=== PATIENT | male | born 1990 | race Caucasian/White ===

== ENCOUNTER 2018-05-11 08:44 | Inpatient (IN) ==
[2018-05-11] MEDS ORDERED: SODIUM CHLORIDE 0.9% 1000ML 1,000 ML IV SCH (09:00)
[2018-05-11] MEDS ORDERED: ALBUT/IPRATROP 3MG/0.5MG NEB 3 ML VIAL NEB STA (09:00)
[2018-05-11 09:24] LABS: Basophils # (auto) 0.03 K/uL (0-0.2); Basophils % (auto) 0.4 %; Eosinophils # (auto) 0.28 K/uL (0-0.5); Eosinophils % (auto) 4.1 %; Hematocrit (blood only) 44.9 % (42-52); Hemoglobin 15.6 g/dL (14.0-18.0); Immature Granulocytes # (auto) 0.01 K/uL (0.00-0.02); Immature Granulocytes % (auto) 0.1 %; Lymphocytes # (auto) 0.85 K/uL (1.2-3.4); Lymphocytes % (auto) 12.4 %; Mean Corpuscular Hgb Conc 34.7 g/dL (32-36); Mean Corpuscular Volume 86.8 fL (80-100); Mean Platelet Volume 9.9 fL (7.4-10.4); Monocytes # (auto) 0.65 K/uL (0.11-0.59); Monocytes % (auto) 9.5 %; Neutrophils # (auto) 5.02 K/uL (1.4-6.5); Neutrophils % (auto) 73.5 %; Platelet Count 242 K/uL (130-400); RDW Coefficient of Variation 12.6 % (11.5-14.5); RDW Standard Deviation 40.4 fL (36.4-46.3); Red Blood Count 5.17 M/uL (4.7-6.1); White Blood Count 6.84 K/uL (4.8-10.8)
--- NOTE | 2018-05-11 09:26 | XRay Report ---
SINGLE VIEW CHEST CLINICAL HISTORY: Atypical chest pain. FINDINGS: An AP, portable, upright chest radiograph is obtained. No prior studies are available for c omparison at the time of dictation. The cardiomediastinal silhouette is unremarkable. There is mild bibasilar atelectasis. No airspace consolidation or large pleural effusion is identified. No pneumoth orax is seen. The bony thorax is grossly intact. IMPRESSION: No acute cardiopulmonary abnormality. Electronically signed by: Bishnu Craig M.D. 05/11/2018 9:24 AM
[2018-05-11 09:32] LABS: iSTAT Hemoglobin 15.3 g/dl (14.0-18.0); iSTAT Ionized Calcium 1.14 mmol/l (1.12-1.32)
[2018-05-11] MEDS ORDERED: ALBUTEROL 0.083% NEBU SOLN 3 ML VIAL NEB STA (09:34)
[2018-05-11 09:42] LABS: Alanine Aminotransferase 25 U/L (12-78); Albumin Level 3.8 gm/dl (3.4-5.0); Aspartate Aminotransferase 17 U/L (15-37); BUN Creatinine Ratio 16.2 (10-20); Blood Urea Nitrogen 12 mg/dl (7-18); Calcium 8.8 mg/dl (8.5-10.1); Carbon Dioxide 26 mmol/L (21-32); Chloride 104 mmol/L (98-107); Creatinine Clr Calc Pharmacy 135.9 ml/min; Est GFR (African American) 143.7; Glucose 101 mg/dl (70-99); Potassium 3.9 mmol/L (3.5-5.1); Sodium 136 mmol/L (136-145)
[2018-05-11 09:47] LABS: Alkaline Phosphatase 86 U/L (45-117); Bilirubin,Total 0.5 mg/dl (0.2-1); Creatine Kinase 71 U/L (39-308); Creatine Kinase MB < 1.0 ng/ml (0.5-3.6); Globulin 3.7 gm/dl (2.5-4.0); Total Protein 7.5 gm/dl (6.4-8.2); Troponin I < 0.015 ng/ml (0-0.045)
[2018-05-11] MEDS ORDERED: OPTIRAY 320 125ml IV PRN (09:52)
--- NOTE | 2018-05-11 10:09 | CT Scan Report ---
CT angio chest PE protocol CLINICAL HISTORY: 28 years-old Male presenting with chest pain, clinical concern for pulmonary embolu s. TECHNIQUE: Multidetector CT angiography of the chest was performed after administration of intravenou s contrast. 3-D volumetric and/or maximum intensity projection (MIP) images were subsequently reconst ructed for review. IV contrast: 121 mL of Optiray 320. One or more dose lowering techniques were used consistent with the principles of ALARA (as low as reasonably achievable), including automatic expos ure control, mA or kV adjustment to individual patient size, and/or use of iterative reconstruction. COMPARISON: Chest x-ray performed earlier today. CT DOSE (mGy.cm): The estimated cumulative dose is 474.04 mGycm. FINDINGS: Heel Builder Machine topogram: Unremarkable. Pulmonary vasculature: The study is suboptimal for the assessment of the pulmonary vascular tree secondary to timing of the contrast bolus and respiratory motion artifact. Extensive bilateral acute pulmonary emboli involving the distal portion of the right interlobar artery and segmental branches to the right lower lobe. Sub segmental branches in the right middle lobe are affected. The right upper lobe is relatively spared a s is the left upper lobe and lingula. Extensive left lower lobar pulmonary emboli significantly invol ving segmental and subsegmental left lower lobe ulnar arteries. Main pulmonary artery is not enlarged . Mild flattening of the interventricular septum may be present though the diameter of the right vent ricle is not enlarged relative to the left. No intracardiac filling defect. No reflux of contrast int o the hepatic veins. Remaining chest: Soft tissues: Normal thyroid and thoracic inlet. Extensive mediastinal lymphadenopathy. An index node in the prevascular region measures 9 mm in short axis. Enlarged subcarinal lymph nodes also evident. Extensive bilateral hilar lymphadenopathy. The right paratracheal region has few enlarged lymph node s. Normal aorta. Top normal heart size. Trace left pleural effusion. No pericardial effusion. Upper a bdomen normal. Lungs and airways: No pneumothorax. Central airways patent. Extensive tree-in-bud as well as randomly distributed punctate nodules in the posterior apical segments of the right upper lobe and to a lesse r extent in the left upper lobe. There is minimal involvement of the right middle lobe. More peripher al solid bandlike and consolidative changes in the posterior basal left lower lobe. Dependent changes in the right lower lobe likely atelectasis. Mild interlobular septal prominence of the right upper l obe. Musculoskeletal: Normal osseous structures. IMPRESSION: 1. Extensive bilateral acute pulmonary emboli with a lower lobe predominance. Subtle flattening of t he interventricular septum. No other demonstrable signs of right heart strain. Correlate clinically. 2. Trace left pleural effusion and possible developing pulmonary infarct in the posterior basal left lower lobe. 3. Extensive tree-in-bud and randomly distributed punctate nodules primarily in the right upper lobe with bilateral hilar and mediastinal lymphadenopathy. This is concerning for an underlying disease p rocess such as sarcoidosis among other etiologies including infectious bronchiolitis and IV talcosis. Follow-up should BE obtained. These findings were discussed with Dr. Joiner by Dr. Meyer on 05/11/2018 9:59 AM. Electronically signed by: Chris Meyer M.D. 05/11/2018 10:08 AM
[2018-05-11] MEDS ORDERED: HYDROmorphone INJ 1 MG/ML SYRINGE ONE (10:43)
[2018-05-11] MEDS ORDERED: HYDROmorphone INJ 1 MG/ML SYRINGE IV STA (10:43)
[2018-05-11] MEDS ORDERED: ONDANSETRON INJ 2 MG/ML 2 ML VIAL IV STA ×2 (10:43→11:10)
[2018-05-11] MEDS ORDERED: LEVOFLOXACIN/D5W 750 MG/150 ML BAG IV STA (10:47)
[2018-05-11] MEDS ORDERED: PIPERACILL/TAZOBAC CONSULT ACTIVE PRN (10:47)
[2018-05-11] MEDS ORDERED: VANCOMYCIN CONSULT ACTIVE PRN (10:47)
[2018-05-11] MEDS ORDERED: PIPERACILLIN/TAZOBACTAM 4.5 GM/120 ML BAG IV ONE (10:47)
[2018-05-11] MEDS ORDERED: VANCOMYCIN HCL 1,500 MG in SODIUM CHLORIDE 0.9% 500 ML IV ONE (10:47)
[2018-05-11 10:48] LABS: Partial Thromboplastin Ratio 1.1; Partial Thromboplastin Time 30.2 Seconds (21.0-31.0); Prothrombin Time 10.4 Seconds (9.0-12.0)
[2018-05-11] MEDS ORDERED: Heparin IV Standard *NO* Bolus IV ONE ×2 (10:48→12:15)
--- NOTE | 2018-05-11 10:50 | Ultrasound Report ---
BILATERAL LOWER EXTREMITY VENOUS DOPPLER HISTORY: Multiple pulmonary emboli. COMPARISON STUDY: None. FINDINGS: There is normal compressibility, flow, and augmentation within the bilateral lower extremit y deep venous systems. IMPRESSION: No DVT within the right or left lower extremity. Electronically signed by: James Monroe M.D. 05/11/2018 10:49 AM
[2018-05-11] MEDS ORDERED: HEPARIN 25000 UNIT/500 ML D5W IV ONE (10:58)
[2018-05-11] MEDS ORDERED: ALTEPLASE, RECOMBINANT 100 MG in EMPTY BAG 0 ML IV ONE (11:00)
[2018-05-11] MEDS ORDERED: PRIMARY PLUMSET 1 EA IV ONE (11:00)
[2018-05-11] MEDS ORDERED: HYDROmorphone INJ 1 MG/ML SYRINGE IV PRN ×2 (11:10→14:00)
--- NOTE | 2018-05-11 11:31 | History & Physical Report ---
Date of Service May 11, 2018 Assessment & Plan (1) Pulmonary embolism: bilateral distribution, more predominant in the lower lobes experiencing some chest pain and dyspnea this would be consider provoked due to frequent flights to [facility] no DVT seen on bilateral dopplers hypercoagulable work up sent by ED doctor, needs outpatient follow up will treat with heparin drip initially transition to oral anticoagulant in next two days for chest pain, use Oxycodone PRN and Dilaudid for breakthrough echo ordered by ED physician to look for any signs of right heart strain however, all blood pressures have been in 110-130 range admit to tele (2) Chest pain: due to pulmonary infarction, most of the pain is on the left side use Oxycodone and Dilaudid for breakthrough (3) Lung nodules: punctate nodules seen on CT also there was tree in bud opacity in right upper lobe report mentions mediastinal and hilar adenopathy d/w Dr. Osei, he will see the patient and look at CT and give recommendations patient given antibiotics in the ED, no plans to continue on admission WBC normal, no fever radiology did recommend follow up CT 40 minutes spent on this admission History of Present Illness Chief Complaint: my chest hurts really bad Primary Care Provider: Fernando Feliciano MD 28 yo male with no significant medical history, presents to the ED today c/o severe chest pain. He noticed the pain yesterday afternoon, occurred while at rest. The pain was worse with exertion or taking a deep breath. The pain continued to get more intense and he felt short of breath. He had a non- productive cough, no hemoptysis, no fever. He came to the ED for evaluation. He has never had chest pain like this. He had a severe URI a month ago, since then he has had a nagging intermittent cough. He does smoke occasionally. In the ED his initial vital signs showed a pulse of 103, RR 20, 95% on room air and systolic BP in the 120's. His CBC and BMP were normal. D dimer was elevated. Normal CXR and EKG. CTA chest showed bilateral PE with predominance in the lower lobes, small left pleural effusion and infarction. Some tree in bud opacities in right upper lobe and hilar adenopathy noted. Venous doppler negative for DVT bilaterally and he denied leg pain. He has no personal history of VTE. He says that his mother's father had blood clots. He admits to traveling by plan quite often for work. He flies to [place], [place] often, flights are a few hours. 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 He says that he wears PPD every time but they always tell him that it is not 100% effective. There were discussions by ED staff to use tPA because he had increased chest pain. However, his blood pressure was preserved, 130's systolic, HR in the 90s. Elected to use Heparin drip and admit to tele. Discussed the findings on CT chest with Dr. Osei, he will see the patient in consult. Allergies Allergy/AdvReac Type Severity Reaction Status Date / Time No Known Allergies Allergy Unverified 05/11/18 09:32 Home Medications Home Medications Medication Instructions Recorded Confirmed Type sertraline 100 mg PO QAM 05/11/18 05/11/18 History Past Med/Surg History Medical History Depression Finger laceration No chronic diseases present No significant past surgical history Family History Other DVT (deep venous thrombosis) Social History Feels Safe at Home: Yes Smoking Status: Current every day smoker Review of Systems All systems reviewed & are unremarkable except as noted in HPI & below Constitutional: no fever, no chills, no sweats, no body aches, no fatigue, no weakness and no weight loss Respiratory: + cough, + dyspnea on exertion, + pain on inspiration and + pain with cough; no chest congestion, no change in sputum, no dyspnea, no hemoptysis , no snoring, no sputum production and no wheezing Cardiovascular: + chest pain, + chest pain at rest, + chest pain with activity, + dyspnea and + dyspnea on exertion; no radiating jaw, neck or arm pain, no dyspnea at rest, no orthopnea, no paroxysmal nocturnal dyspnea, no palpitations , no lightheadedness, no syncope, no edema, no calf pain and no claudication Physical Exam 2 Vital Signs (Past 24 Hours): Last Vital Signs Temp 36.8 C 05/11/18 08:51 Pulse 87 05/11/18 11:19 Resp 16 05/11/18 11:19 BP 140/88 05/11/18 11:19 Pulse Ox 94 05/11/18 11:19 Constitutional: WD/WN, vitals as above Eyes: PERRL, conjunctivae normal, anicteric sclerae ENMT: external ear and nose normal, oropharynx normal Neck: trachea midline, no thyromegaly Respiratory: normal respiratory effort, lungs clear to auscultation Cardiovascular: RRR, no murmur, no edema Gastrointestinal (Abdomen): normal bowel sounds, soft, nontender, no hepatosplenomegaly Musculoskeletal: no cyanosis or clubbing, extremities motor strength 5/5 Skin: no rashes, warm and dry Neurologic: patellar DTR's 2+ bilat, sensation intact and PERRL, EOMI, accommodation nl, no face palsy, no dysarthria Psychiatric: A+Ox3, euthymic affect Lymphatic: no cervical or axillary lymphadenopathy Results & Data Laboratory Results Laboratory Results - last 24 hr 05/11/18 05/11/18 05/11/18 09:15 09:15 09:18 WBC 6.84 RBC 5.17 Hgb 15.6 POC Hgb 15.3 Hct 44.9 POC Hct 45 MCV 86.8 MCH 30.2 MCHC 34.7 RDW Std Deviation 40.4 RDW Coeff of Neal 12.6 Plt Count 242 MPV 9.9 Immature Gran % (Auto) 0.1 Neut % (Auto) 73.5 Lymph % (Auto) 12.4 [place] % (Auto) 9.5 Eos % (Auto) 4.1 Baso % (Auto) 0.4 Immature Gran # (Auto) 0.01 Neut # (Auto) 5.02 Lymph # (Auto) 0.85 L [place] # (Auto) 0.65 H Eos # (Auto) 0.28 Baso # (Auto) 0.03 PT INR APTT PTT Ratio POC D-Dimer POC Sodium 140 Sodium 136 POC Potassium 3.9 Potassium 3.9 POC Chloride 102 Chloride 104 Carbon Dioxide 26 POC Total CO2 28 Anion Gap 7.0 POC Anion Gap 15.0 L POC BUN 11 BUN 12 Creatinine 0.75 POC Creatinine 0.7 Est Cr Clr Drug Dosing 135.9 Est GFR ( Amer) 143.7 Est GFR (Non-Af Amer) 124.0 BUN/Creatinine Ratio 16.2 Glucose 101 H POC Glucose (other) 103 H Calcium 8.8 POC Ioniz Calcium Alyssa 1.14 Total Bilirubin 0.5 AST 17 ALT 25 Alkaline Phosphatase 86 Total Creatine Kinase 71 CK-MB (CK-2) < 1.0 CK/CKMB % Calc TNP Troponin I < 0.015 Total Protein 7.5 Albumin 3.8 Globulin 3.7 Albumin/Globulin Ratio 1.0 Lipase 145 05/11/18 05/11/18 09:21 10:10 WBC RBC Hgb POC Hgb Hct POC Hct MCV MCH MCHC RDW Std Deviation RDW Coeff of Neal Plt Count MPV Immature Gran % (Auto) Neut % (Auto) Lymph % (Auto) [place] % (Auto) Eos % (Auto) Baso % (Auto) Immature Gran # (Auto) Neut # (Auto) Lymph # (Auto) [place] # (Auto) Eos # (Auto) Baso # (Auto) PT 10.4 INR 1.0 APTT 30.2 PTT Ratio 1.1 POC D-Dimer > 450 H* POC Sodium Sodium POC Potassium Potassium POC Chloride Chloride Carbon Dioxide POC Total CO2 Anion Gap POC Anion Gap POC BUN BUN Creatinine POC Creatinine Est Cr Clr Drug Dosing Est GFR ( Amer) Est GFR (Non-Af Amer) BUN/Creatinine Ratio Glucose POC Glucose (other) Calcium POC Ioniz Calcium Alyssa Total Bilirubin AST ALT Alkaline Phosphatase Total Creatine Kinase CK-MB (CK-2) CK/CKMB % Calc Troponin I Total Protein Albumin Globulin Albumin/Globulin Ratio Lipase Diagnostic Findings CTA CHEST PE PROTOCOL IMPRESSION: 1. Extensive bilateral acute pulmonary emboli with a lower lobe predominance. Subtle flattening of the interventricular septum. No other demonstrable signs of right heart strain. Correlate clinically. 2. Trace left pleural effusion and possible developing pulmonary infarct in the posterior basal left lower lobe. 3. Extensive tree-in-bud and randomly distributed punctate nodules primarily in the right upper lobe with bilateral hilar and mediastinal lymphadenopathy. This is concerning for an underlying disease process such as sarcoidosis among other etiologies including infectious bronchiolitis and IV talcosis. Follow-up should BE obtained. Code Status & VTE Plan Code Status full code VTE Prophylaxis Plan VTE Prophylaxis will be ordered: Yes _ (1) Pulmonary embolism Acute cor pulmonale presence: with acute cor pulmonale Chronicity: acute Pulmonary embolism type: unspecified Qualified Code(s): I26.09 - Other pulmonary embolism with acute cor pulmonale (2) Chest pain Chest pain type: unspecified Ischemic chest pain type: Qualified Code(s): R07.9 - Chest pain, unspecified
[2018-05-11] MEDS ORDERED: SODIUM CHLORIDE 0.9% 50 ML IV ONE (12:00)
[2018-05-11] MEDS ORDERED: ACETAMINOPHEN 325 MG TAB PO PRN (12:15)
[2018-05-11] MEDS: HEPARIN STANDARD DEXTROSE 25,000 UNITS/500 ML IV SCH (12:15)
[2018-05-11] MEDS: OXYCODONE HCL IR 5 MG TAB (IMMEDIATE RELEASE) PO PRN (13:04)
[2018-05-11] MEDS ORDERED: ONDANSETRON INJ 2 MG/ML 2 ML VIAL IV PRN (14:00)
--- NOTE | 2018-05-11 14:23 | Emergency Department Note ---
Entered by Trina Silver acting as a scribe for History of Present Illness General Chief complaint: Shortness of Breath/Dyspnea Stated complaint: SOB,PAIN IN BACK AND RIB AREA,COUGH Time Seen by Provider: 05/11/18 08:56 Source: patient History of Present Illness Provider complaint: shortness of breath Onset (ago): day(s) (this morning) Location: chest Pain Consistency: + other (persistent) Maximum Pain Intensity: 8 Quality: + other (shortness of breath) Exacerbated By: + other (deep breaths, laying down) Associated symptoms: + other (upper abdominal pain, back pain) Treatments prior to arrival: none The patient is a 28 year old male who presents to the Emergency Room with complaints of persistent shortness of breath beginning this morning. He reports he feels unable to take a deep breath, and deep breaths and laying flat exacerbate his symptoms. The patient notes chest pain that radiates into his back. He denies fevers. The patient denies recent heavy lifting or snow shoveling. The patient denies a history of asthma. He did not take any medication for his symptoms today. Home Medications Home Medications Medication Instructions Recorded Confirmed Type sertraline 100 mg PO QAM 05/11/18 05/11/18 History Allergies Allergy/AdvReac Type Severity Reaction Status Date / Time No Known Allergies Allergy Unverified 05/11/18 09:32 Past Med/Surg History Medical History Depression Finger laceration No chronic diseases present No significant past surgical history Family History Other DVT (deep venous thrombosis) Social History Current Living Situation: Other Other Information That Helps Us Care for You: No Feels Safe at Home: Yes Safety Concerns: Feels Safe At This Time Smoking Status: Current some day smoker Tobacco Type: cigarettes Cigarettes per Day: 1 (3-4/week) Hx Alcohol Use: Yes Alcohol type: beer Alcohol Intake Frequency: 0-2 drinks per day Hx Substance Use: Yes substance use type: marijuana Last Used Substance: Days ( ago) Beliefs That Will Affect Care: None Communication Ability: Effective Review of Systems See HPI for pertinent positives & negatives. and A total of 10 systems reviewed and were otherwise negative Physical Exam Vital Signs Vital Signs - 24 hr 05/11/18 08:51 05/11/18 09:13 05/11/18 09:20 Temperature 36.8 C Temperature Source Oral Sepsis Recent Fever Within 48 Hours No Sepsis New/Unexplained Change in Mental Status No Sepsis Action Taken by Nursing No Action Required Pulse Rate 103 H 79 76 Pulse Rate [Left Brachial] Pulse Rate from SpO2 Sensor 79 76 Pulse Rhythm Regular Pulse Rhythm [Left Brachial] Pulse Strength Normal Pulse Strength [Left Brachial] Respiratory Rate 20 29 H 24 Respiratory Effort / Characteristics Non-Labored Spontaneous Respiratory Depth Normal Respiratory Pattern Blood Pressure 123/86 Blood Pressure [Left Arm] Blood Pressure [Right Arm] Blood Pressure Mean 98 Blood Pressure Mean [Left Arm] Blood Pressure Mean [Right Arm] Blood Pressure Position [Left Arm] Blood Pressure Position [Right Arm] Pulse Oximetry 95 95 96 Oxygen Delivery Method Room Air Oxygen Flow Rate 05/11/18 09:27 05/11/18 09:28 05/11/18 09:30 Temperature Temperature Source Sepsis Recent Fever Within 48 Hours Sepsis New/Unexplained Change in Mental Status Sepsis Action Taken by Nursing Pulse Rate 74 77 Pulse Rate [Left Brachial] 73 Pulse Rate from SpO2 Sensor 75 78 Pulse Rhythm Pulse Rhythm [Left Brachial] Pulse Strength Pulse Strength [Left Brachial] Respiratory Rate 18 22 25 H Respiratory Effort / Characteristics Non-Labored Spontaneous Respiratory Depth Normal Respiratory Pattern Regular Blood Pressure 127/89 133/89 Blood Pressure [Left Arm] 127/89 Blood Pressure [Right Arm] Blood Pressure Mean 101 103 Blood Pressure Mean [Left Arm] 101 Blood Pressure Mean [Right Arm] Blood Pressure Position [Left Arm] Lying Blood Pressure Position [Right Arm] Pulse Oximetry 99 100 100 Oxygen Delivery Method Room Air Oxygen Flow Rate 05/11/18 09:40 05/11/18 09:57 05/11/18 09:58 Temperature Temperature Source Sepsis Recent Fever Within 48 Hours Sepsis New/Unexplained Change in Mental Status Sepsis Action Taken by Nursing Pulse Rate 91 H 91 H 83 Pulse Rate [Left Brachial] 83 Pulse Rate from SpO2 Sensor 93 H 88 84 Pulse Rhythm Pulse Rhythm [Left Brachial] Pulse Strength Pulse Strength [Left Brachial] Respiratory Rate 16 20 22 Respiratory Effort / Characteristics Non-Labored Spontaneous Respiratory Depth Normal Respiratory Pattern Regular Blood Pressure 128/73 Blood Pressure [Left Arm] 128/73 Blood Pressure [Right Arm] Blood Pressure Mean 91 Blood Pressure Mean [Left Arm] 91 Blood Pressure Mean [Right Arm] Blood Pressure Position [Left Arm] Lying Blood Pressure Position [Right Arm] Pulse Oximetry 99 97 99 Oxygen Delivery Method Room Air Oxygen Flow Rate 05/11/18 10:00 05/11/18 10:10 05/11/18 10:42 Temperature Temperature Source Sepsis Recent Fever Within 48 Hours Sepsis New/Unexplained Change in Mental Status Sepsis Action Taken by Nursing Pulse Rate 88 96 H 86 Pulse Rate [Left Brachial] Pulse Rate from SpO2 Sensor 87 98 H 83 Pulse Rhythm Pulse Rhythm [Left Brachial] Pulse Strength Pulse Strength [Left Brachial] Respiratory Rate 25 H 23 16 Respiratory Effort / Characteristics Respiratory Depth Respiratory Pattern Blood Pressure 126/73 Blood Pressure [Left Arm] Blood Pressure [Right Arm] Blood Pressure Mean 90 Blood Pressure Mean [Left Arm] Blood Pressure Mean [Right Arm] Blood Pressure Position [Left Arm] Blood Pressure Position [Right Arm] Pulse Oximetry 100 98 100 Oxygen Delivery Method Oxygen Flow Rate 05/11/18 11:19 05/11/18 11:50 05/11/18 12:13 Temperature Temperature Source Sepsis Recent Fever Within 48 Hours Sepsis New/Unexplained Change in Mental Status Sepsis Action Taken by Nursing Pulse Rate 78 Pulse Rate [Left Brachial] 87 83 Pulse Rate from SpO2 Sensor Pulse Rhythm Pulse Rhythm [Left Brachial] Pulse Strength Pulse Strength [Left Brachial] Respiratory Rate 16 14 Respiratory Effort / Characteristics Respiratory Depth Respiratory Pattern Blood Pressure Blood Pressure [Left Arm] 140/88 125/79 Blood Pressure [Right Arm] Blood Pressure Mean Blood Pressure Mean [Left Arm] 105 94 Blood Pressure Mean [Right Arm] Blood Pressure Position [Left Arm] Blood Pressure Position [Right Arm] Pulse Oximetry 94 96 Oxygen Delivery Method Nasal Cannula Nasal Cannula Oxygen Flow Rate 2 2 05/11/18 12:15 Temperature 36.7 C Temperature Source Oral Sepsis Recent Fever Within 48 Hours Sepsis New/Unexplained Change in Mental Status Sepsis Action Taken by Nursing Pulse Rate Pulse Rate [Left Brachial] 78 Pulse Rate from SpO2 Sensor Pulse Rhythm Pulse Rhythm [Left Brachial] Regular Pulse Strength Pulse Strength [Left Brachial] Normal Respiratory Rate 15 Respiratory Effort / Characteristics Non-Labored Spontaneous Respiratory Depth Normal Respiratory Pattern Regular Blood Pressure Blood Pressure [Left Arm] Blood Pressure [Right Arm] 124/79 Blood Pressure Mean Blood Pressure Mean [Left Arm] Blood Pressure Mean [Right Arm] 94 Blood Pressure Position [Left Arm] Blood Pressure Position [Right Arm] Sitting Pulse Oximetry 94 Oxygen Delivery Method Nasal Cannula Oxygen Flow Rate 2 GENERAL: Awake, alert, well-appearing, in no distress HENT: Normocephalic, atraumatic. Oropharynx unremarkable. EYES: Normal conjunctiva. Sclera non-icteric. NECK: Supple. No nuchal rigidity. FROM. No masses. RESPIRATORY: Clear to auscultation. No wheezes. No rales. Normal respiratory effort. CARDIAC: Normal rate. Normal rhythm. No murmurs. No rubs. Extremities warm and well perfused. Pulses equal. No JVD. GI: Soft, non-distended. No tenderness to palpation. No rebound or guarding. No masses. RECTAL: Deferred. MUSCULOSKELETAL: Atraumatic. Chest examination reveals no tenderness. The back is symmetrical on inspection without obvious abnormality. There is no CVA tenderness to palpation. No joint edema. LOWER EXTREMITIES: Calves are equal size bilaterally and non-tender. No edema. No discoloration. NEURO: Normal sensorium. No sensory or motor deficits noted. Course 0857: Past medical records reviewed. The patient was evaluated in room A4B, and a complete history and physical examination were performed. 0959: Discussed the case with Dr. Meyer, [facility] radiologist. 1002: I reevaluated the patient and discussed his test results. He verbalized agreement with the treatment plan. 1040: The patient was sent emergently from ultrasound because he became diaphoretic and was complaining of chest pain. I evaluated the patient in A1. 1044: I reviewed the patient's case with Dr. Riggins, [facility] hospitalist. He will evaluate the patient for further management. 1116: I discussed the case with Dr. Vick, Consultations Consultation #1: Dr. Meyer [facility] radiologist. Time: 09:59 Consultation #2: Dr. Riggins [facility] hospitalist Time: 10:44 Administered Medications Heparin Sodium/Dextrose (Heparin Sodium/Dextrose) 25,000 units in 500 mls @ 26 mls/hr IV .[id number] [facility]; Protocol Stop: 06/10/18 11:00 Last Admin: 05/11/18 12:15 Dose: 1,300 units/hr, 26 mls/hr Ioversol (Optiray 320 125ml) 121 ml IV ONCE PRN PRN Reason: Interaction Checking Stop: 05/15/18 09:51 Last Admin: 05/11/18 09:52 Dose: 121 ml Oxycodone HCl (Roxicodone Immediate Rel) 5 mg PO Q4 PRN PRN Reason: Moderate Pain Stop: 05/25/18 12:14 Last Admin: 05/11/18 13:04 Dose: 5 mg Discontinued Medications Albuterol (Duoneb) 3 ml NEB NOW STA Stop: 05/11/18 09:01 Last Admin: 05/11/18 09:25 Dose: 3 ml Albuterol (Ventolin 0.083% 2.5mg/3ml) 2.5 mg NEB NOW STA Stop: 05/11/18 09:35 Last Admin: 05/11/18 09:57 Dose: 2.5 mg Heparin Sodium/Dextrose () 1 ea IV ONE ONE; Protocol Stop: 05/11/18 10:49 Last Admin: 05/11/18 11:09 Dose: Not Given Heparin Sodium/Dextrose (Heparin Sodium/Dextrose) Confirm Administered Dose 25, 000 units IV .STK-MED ONE Stop: 05/11/18 10:59 Last Admin: 05/11/18 11:06 Dose: 1,300 units Hydromorphone HCl (Dilaudid) Confirm Administered Dose 1 mg .ROUTE .STK-MED ONE Stop: 05/11/18 10:44 Last Admin: 05/11/18 11:12 Dose: Not Given Hydromorphone HCl (Dilaudid) 1 mg IV NOW STA Stop: 05/11/18 10:44 Last Admin: 05/11/18 10:50 Dose: 1 mg Hydromorphone HCl (Dilaudid) 1 mg IV Q15M PRN PRN Reason: Pain Stop: 05/25/18 11:09 Last Admin: 05/11/18 11:14 Dose: 1 mg Sodium Chloride (Nss 1000ml) 1,000 mls @ 999 mls/hr IV .Q1H1M ARUN Stop: 05/11/18 10:00 Last Infusion: 05/11/18 10:17 Dose: 0 mls/hr Admin: 05/11/18 09:25 Dose: 999 mls/hr Alteplase, Recombinant 100 mg/ (EMPTY BAG) 100 mls @ 50 mls/hr IV TODAY@1100 ONE; Protocol Stop: 05/11/18 12:59 Last Admin: 05/11/18 13:09 Dose: Not Given N/A (Primary [place], Pe Lined Tubing ([id number])) mls @ 0.0033 mls/hr IV 1100 ONE Stop: 05/11/18 11:01 Last Admin: 05/11/18 13:05 Dose: Not Given Sodium Chloride (Nss) 50 mls @ 50 mls/hr IV TODAY@1200 ONE; Protocol Stop: 05/11/18 12:59 Last Admin: 05/11/18 12:53 Dose: Not Given Levofloxacin/Dextrose (Levaquin/D5w) 750 mg in 150 mls @ 100 mls/hr IV NOW STA Stop: 05/11/18 12:16 Last Infusion: 05/11/18 13:23 Dose: 0 mls/hr Admin: 05/11/18 11:47 Dose: 100 mls/hr Piperacillin Sod/Tazobactam Sod (Zosyn) 4.5 gm in 120 mls @ 240 mls/hr IV NOW ONE Stop: 05/11/18 11:16 Last Infusion: 05/11/18 11:34 Dose: 0 mls/hr Admin: 05/11/18 11:01 Dose: 240 mls/hr Vancomycin HCl 1,500 mg/ (Sodium Chloride) 530 mls @ 200 mls/hr IV NOW ONE Stop: 05/11/18 13:25 Last Admin: 05/11/18 11:43 Dose: 200 mls/hr Ondansetron HCl (Zofran) 4 mg IV NOW STA Stop: 05/11/18 10:44 Last Admin: 05/11/18 11:14 Dose: 4 mg Ondansetron HCl (Zofran) 4 mg IV NOW STA Stop: 05/11/18 11:11 Last Admin: 05/11/18 12:54 Dose: Not Given Medical Decision Making Differential Diagnosis the differential was considered includes acute myocardial infarction, acute coronary syndrome, myocarditis, pericarditis, pericardial effusions /tamponad, esophageal perforation, thoracic aortic dissection, pulmonary embolism, pneumonia, pneumothorax, pancreatitis, shingles, acute cholecystitis, perforated abdominal viscus. Medical Records Attestation: I reviewed the patient's medical records. Home Medications Current Medication List: was personally reviewed by me Laboratory Data Attestation: I reviewed the patient's lab results. Result diagrams: 05/11/18 09:15 05/11/18 09:15 Lab Results 05/11/18 05/11/18 05/11/18 Range/Units 09:15 09:15 09:18 WBC 6.84 (4.8-10.8) K/uL RBC 5.17 (4.7-6.1) M/uL Hgb 15.6 (14.0-18.0) g/dL POC Hgb 15.3 (14.0-18.0) g/dl Hct 44.9 (42-52) % POC Hct 45 (42-52) % MCV 86.8 (80-100) fL MCH 30.2 (25-34) pg MCHC 34.7 (32-36) g/dL RDW Std Deviation 40.4 (36.4-46.3) fL RDW Coeff of Neal 12.6 (11.5-14.5) % Plt Count 242 (130-400) K/uL MPV 9.9 (7.4-10.4) fL Immature Gran % (Auto) 0.1 % Neut % (Auto) 73.5 % Lymph % (Auto) 12.4 % Cecil % (Auto) 9.5 % Eos % (Auto) 4.1 % Baso % (Auto) 0.4 % Immature Gran # (Auto) 0.01 (0.00-0.02) K/uL Neut # (Auto) 5.02 (1.4-6.5) K/uL Lymph # (Auto) 0.85 L (1.2-3.4) K/uL Cecil # (Auto) 0.65 H (0.11-0.59) K/uL Eos # (Auto) 0.28 (0-0.5) K/uL Baso # (Auto) 0.03 (0-0.2) K/uL PT (9.0-12.0) Seconds INR (0.9-1.1) APTT (21.0-31.0) Seconds PTT Ratio POC D-Dimer (0-450) ng/mlFEU POC Sodium 140 (135-144) mEq/L Sodium 136 (136-145) mmol/L POC Potassium 3.9 (3.3-5.0) mEq/L Potassium 3.9 (3.5-5.1) mmol/L POC Chloride 102 (101-112) mEq/L Chloride 104 (98-107) mmol/L Carbon Dioxide 26 (21-32) mmol/L POC Total CO2 28 (24-31) mEq/l Anion Gap 7.0 (3-11) POC Anion Gap 15.0 L (16-25) mmol/L POC BUN 11 (7-18) mg/dl BUN 12 (7-18) mg/dl Creatinine 0.75 (0.6-1.4) mg/dl POC Creatinine 0.7 (0.6-1.3) mg/dl Est Cr Clr Drug Dosing 135.9 ml/min Est GFR ( Amer) 143.7 Est GFR (Non-Af Amer) 124.0 BUN/Creatinine Ratio 16.2 (10-20) Glucose 101 H (70-99) mg/dl POC Glucose (other) 103 H (70-99) mg/dl Calcium 8.8 (8.5-10.1) mg/dl POC Ioniz Calcium Alyssa 1.14 (1.12-1.32) mmol/l Total Bilirubin 0.5 (0.2-1) mg/dl AST 17 (15-37) U/L ALT 25 (12-78) U/L Alkaline Phosphatase 86 (45-117) U/L Total Creatine Kinase 71 (39-308) U/L CK-MB (CK-2) < 1.0 (0.5-3.6) ng/ml CK/CKMB % Calc TNP Troponin I < 0.015 (0-0.045) ng/ml Total Protein 7.5 (6.4-8.2) gm/dl Albumin 3.8 (3.4-5.0) gm/dl Globulin 3.7 (2.5-4.0) gm/dl Albumin/Globulin Ratio 1.0 (0.9-2) Lipase 145 (73-393) U/L 05/11/18 05/11/18 Range/Units 09:21 10:10 WBC (4.8-10.8) K/uL RBC (4.7-6.1) M/uL Hgb (14.0-18.0) g/dL POC Hgb (14.0-18.0) g/dl Hct (42-52) % POC Hct (42-52) % MCV (80-100) fL MCH (25-34) pg MCHC (32-36) g/dL RDW Std Deviation (36.4-46.3) fL RDW Coeff of Neal (11.5-14.5) % Plt Count (130-400) K/uL MPV (7.4-10.4) fL Immature Gran % (Auto) % Neut % (Auto) % Lymph % (Auto) % Cecil % (Auto) % Eos % (Auto) % Baso % (Auto) % Immature Gran # (Auto) (0.00-0.02) K/uL Neut # (Auto) (1.4-6.5) K/uL Lymph # (Auto) (1.2-3.4) K/uL Cecil # (Auto) (0.11-0.59) K/uL Eos # (Auto) (0-0.5) K/uL Baso # (Auto) (0-0.2) K/uL PT 10.4 (9.0-12.0) Seconds INR 1.0 (0.9-1.1) APTT 30.2 (21.0-31.0) Seconds PTT Ratio 1.1 POC D-Dimer > 450 H* (0-450) ng/mlFEU POC Sodium (135-144) mEq/L Sodium (136-145) mmol/L POC Potassium (3.3-5.0) mEq/L Potassium (3.5-5.1) mmol/L POC Chloride (101-112) mEq/L Chloride (98-107) mmol/L Carbon Dioxide (21-32) mmol/L POC Total CO2 (24-31) mEq/l Anion Gap (3-11) POC Anion Gap (16-25) mmol/L POC BUN (7-18) mg/dl BUN (7-18) mg/dl Creatinine (0.6-1.4) mg/dl POC Creatinine (0.6-1.3) mg/dl Est Cr Clr Drug Dosing ml/min Est GFR ( Amer) Est GFR (Non-Af Amer) BUN/Creatinine Ratio (10-20) Glucose (70-99) mg/dl POC Glucose (other) (70-99) mg/dl Calcium (8.5-10.1) mg/dl POC Ioniz Calcium Alyssa (1.12-1.32) mmol/l Total Bilirubin (0.2-1) mg/dl AST (15-37) U/L ALT (12-78) U/L Alkaline Phosphatase (45-117) U/L Total Creatine Kinase (39-308) U/L CK-MB (CK-2) (0.5-3.6) ng/ml CK/CKMB % Calc Troponin I (0-0.045) ng/ml Total Protein (6.4-8.2) gm/dl Albumin (3.4-5.0) gm/dl Globulin (2.5-4.0) gm/dl Albumin/Globulin Ratio (0.9-2) Lipase (73-393) U/L Imaging Data Radiologist's Impression: Radiology results as stated below per my review and the radiologist's interpretation: CT angio chest PE protocol CLINICAL HISTORY: 28 years-old Male presenting with chest pain, clinical concern for pulmonary embolus. TECHNIQUE: Multidetector CT angiography of the chest was performed after administration of intravenous contrast. 3-D volumetric and/or maximum intensity projection (MIP) images were subsequently reconstructed for review. IV contrast : 121 mL of Optiray 320. One or more dose lowering techniques were used consistent with the principles of ALARA (as low as reasonably achievable), including automatic exposure control, mA or kV adjustment to individual patient size, and/or use of iterative reconstruction. COMPARISON: Chest x-ray performed earlier today. CT DOSE (mGy.cm): The estimated cumulative dose is 474.04 mGycm. FINDINGS: Radio Announcer topogram: Unremarkable. Pulmonary vasculature: The study is suboptimal for the assessment of the pulmonary vascular tree secondary to timing of the contrast bolus and respiratory motion artifact. Extensive bilateral acute pulmonary emboli involving the distal portion of the right interlobar artery and segmental branches to the right lower lobe. Subsegmental branches in the right middle lobe are affected. The right upper lobe is relatively spared as is the left upper lobe and lingula. Extensive left lower lobar pulmonary emboli significantly involving segmental and subsegmental left lower lobe ulnar arteries. Main pulmonary artery is not enlarged. Mild flattening of the interventricular septum may be present though the diameter of the right ventricle is not enlarged relative to the left. No intracardiac filling defect. No reflux of contrast into the hepatic veins. Remaining chest: Soft tissues: Normal thyroid and thoracic inlet. Extensive mediastinal lymphadenopathy. An index node in the prevascular region measures 9 mm in short axis. Enlarged subcarinal lymph nodes also evident. Extensive bilateral hilar lymphadenopathy. The right paratracheal region has few enlarged lymph nodes. Normal aorta. Top normal heart size. Trace left pleural effusion. No pericardial effusion. Upper abdomen normal. Lungs and airways: No pneumothorax. Central airways patent. Extensive tree-in- bud as well as randomly distributed punctate nodules in the posterior apical segments of the right upper lobe and to a lesser extent in the left upper lobe. There is minimal involvement of the right middle lobe. More peripheral solid bandlike and consolidative changes in the posterior basal left lower lobe. Dependent changes in the right lower lobe likely atelectasis. Mild interlobular septal prominence of the right upper lobe. Musculoskeletal: Normal osseous structures. IMPRESSION: 1. Extensive bilateral acute pulmonary emboli with a lower lobe predominance. Subtle flattening of the interventricular septum. No other demonstrable signs of right heart strain. Correlate clinically. 2. Trace left pleural effusion and possible developing pulmonary infarct in the posterior basal left lower lobe. 3. Extensive tree-in-bud and randomly distributed punctate nodules primarily in the right upper lobe with bilateral hilar and mediastinal lymphadenopathy. This is concerning for an underlying disease process such as sarcoidosis among other etiologies including infectious bronchiolitis and IV talcosis. Follow-up should BE obtained. These findings were discussed with Dr. Joiner by Dr. Meyer on 05/11/2018 9: 59 AM. Electronically signed by: Chris Meyer M.D. 05/11/2018 10:08 AM SINGLE VIEW CHEST CLINICAL HISTORY: Atypical chest pain. FINDINGS: An AP, portable, upright chest radiograph is obtained. No prior studies are available for comparison at the time of dictation. The cardiomediastinal silhouette is unremarkable. There is mild bibasilar atelectasis. No airspace consolidation or large pleural effusion is identified. No pneumothorax is seen. The bony thorax is grossly intact. IMPRESSION: No acute cardiopulmonary abnormality. Electronically signed by: Bishnu Craig M.D. 05/11/2018 9:24 AM BILATERAL LOWER EXTREMITY VENOUS DOPPLER HISTORY: Multiple pulmonary emboli. COMPARISON STUDY: None. FINDINGS: There is normal compressibility, flow, and augmentation within the bilateral lower extremity deep venous systems. IMPRESSION: No DVT within the right or left lower extremity. Electronically signed by: James Monroe M.D. 05/11/2018 10:49 AM ECG Data Attestation: I personally reviewed and interpreted this ECG as follows: Indication: SOB/dyspnea Rate (beats per minute): 81 Rhythm: normal sinus Findings: no ST depression and no ST elevation Blood Pressure Blood Pressure Findings: Normal blood pressure Blood Pressure Disposition: did not require urgent referral MDM Narrative This is a 28-year-old male who presents emergency department complaining of chest pain. Based on this an EKG was obtained as well as a d-dimer. The d- dimer was grossly elevated therefore the patient was sent for a CAT scan of the chest. This was concerning for multiple PEs as well as lung nodules. Patient was given Dilaudid here in the emergency department for pain and given multiple breathing treatments. Due to what appears to be heart strain I did discuss the case with the hospitalist service who agreed to admit the patient. He was started on broad-spectrum antibiotics including Zosyn Levaquin and vancomycin. Patient was in agreement with the treatment plan. Patient was started on a heparin drip. A hypercoagulable panel was obtained prior to starting the drip. Impression & Plan Chest pain, Pulmonary embolism Critical Care Time I have personally spent greater than 90 minutes of critical care time in the direct management of this patient. This includes bedside care, interpretation of diagnostic studies, and testing, discussion with consultants, patient, and family members, and other required patient management activities. This 90 minutes is in excess of all separately billable procedures. Critical Care Time: Yes Total Critical Care Time: 90 Discharge Plan Visit Data *Final* Discharge Date/Time: 05/11/18 12:10 Chief Complaint: Shortness of Breath/Dyspnea Stated Complaint: SOB,PAIN IN BACK AND RIB AREA,COUGH ED Provider: Matthew Joiner Discharge Problem: Chest pain, Pulmonary embolism Patient Disposition: Admitted As Inpatient Discharge Instructions Interventions: ED Discharge Assessment Last Done: 05/11/18 12:10 The scribe's documentation has been prepared under my direction and personally reviewed by me in its entirety. I confirm that the note above accurately reflects all work, treatment, procedures, and medical decision making performed by me.
[2018-05-11] MEDS ORDERED: INFLUENZA ADMINISTRATION CHARGE ONE (16:15)
[2018-05-11] MEDS ORDERED: INFLUENZA VIRUS QUAD VACCINE 0.5 ML SYR IM ONE (16:15)
[2018-05-11 17:09] LABS: Partial Thromboplastin Ratio 1.6; Partial Thromboplastin Time 42.5 Seconds (21.0-31.0)
[2018-05-11] MEDS ORDERED: HEPARIN IV BOLUS 3,000 UNITS in SYRINGE 0 ML IV ONE (17:41)
--- NOTE | 2018-05-11 20:18 | Pulmonary Consultation ---
Date of Consultation May 11, 2018 Assessment & Plan (1) Pulmonary embolism: Impression: 1. Multiple bilateral PEs. 2. Left lower lobe subsegmental pulmonary infarct with pleural effusion. 3. One pulmonary nodule in the right upper lobe. 4. Multiple areas of nodularity in the right upper lobe, concerning for inhalation of industrial material. This likely to be infectious. Plan: 1. Agree with hypercoagulable state workup. 2. Continue with heparin, start Coumadin or NOAC based on insurability. 3. Workup for the right upper lobe cannot be done at this point, until the patient is anticoagulated for at least 4 weeks with assurance of resolution of PEs. 4. Expect chest discomfort due to pulmonary infarct mainly on the left. 5. No need for TPA given the patient negative troponin and findings on the echo does not support elevated RV to LV ratio as well as by CAT scan. 6. Ambulate the patient. 7. No restriction on flying by airplane while on anticoagulation. However I would spare 2 weeks at least prior to return to work. 8. He will need outpatient follow-up in pulmonary clinic. Thank you Acute cor pulmonale presence: with acute cor pulmonale Chronicity : acute Pulmonary embolism type: unspecified Qualified Code(s): I26.09 - Other pulmonary embolism with acute cor pulmonale History of Present Illness Reason for Consultation: PE Requesting Physician: Dr. Riggins Attending Physician: Jarred Riggins, History of Present Illness Dear Dr. Riggins: Thank you for the kind referral of Bk to pulmonary service. This is 28-year -old gentleman without significant past medical history except for depression, has been working in the [facility] traveling several times by airplanes to [place] and [place] on a regular basis. The patient presented to the hospital with increasing chest tightness and discomfort as well as left-sided chest pain that has been persistent. The patient presented to the ED and underwent a workup including CT angiogram which revealed multiple segmental PE. The patient denies any hemoptysis, no nausea or vomiting reported, no increased swelling in his lower extremities and no pain in his calves. Denies any abdominal pain or pelvic pain. No back pain either. He has no history of PE and no family history of PE as well. The patient started on heparin drip and was admitted to the hospital and we were asked to evaluate the patient from pulmonary standpoint. Family history is negative for venous thromboembolic events. Social history, the patient is very occasional smoker but not active. He works as an civil transportation engineer. And travel monthly several times to [place]. Allergies Allergy/AdvReac Type Severity Reaction Status Date / Time No Known Allergies Allergy Unverified 05/11/18 09:32 Home Medications Home Medications Medication Instructions Recorded Confirmed Type sertraline 100 mg PO QAM 05/11/18 05/11/18 History Patient History Medical History Depression Finger laceration No chronic diseases present No significant past surgical history Family History Other DVT (deep venous thrombosis) Social History Current Living Situation: Other Other Information That Helps Us Care for You: No Feels Safe at Home: Yes Safety Concerns: Feels Safe At This Time Smoking Status: Current some day smoker Tobacco Type: cigarettes Cigarettes per Day: 1 (3-4/week) Hx Alcohol Use: Yes Alcohol type: beer Alcohol Intake Frequency: 0-2 drinks per day Hx Substance Use: Yes substance use type: marijuana Last Used Substance: Days ( ago) Beliefs That Will Affect Care: None Communication Ability: Effective Review of Systems Review of system otherwise was unremarkable including 14 systems. Physical Exam 2 Vital Signs (Past 24 Hours): Last Vital Signs Temp 36.8 C 05/11/18 19:33 Pulse 72 05/11/18 19:33 Resp 16 05/11/18 19:33 BP 112/73 05/11/18 19:33 Pulse Ox 95 05/11/18 19:33 Physical Exam: Young gentleman does not appear to be in any respiratory distress, S1-S2 regular rate and rhythm, lungs are clear, oral mucosa is normal , no JVP, no lymphadenopathy in the neck area, abdomen is benign, no edema, neurologically he is intact, no skin rash. Results & Data Laboratory Results Labs were noted for PTT that has been elevated still subtherapeutic. Diagnostic Findings CAT scan of the chest which I reviewed showed multiple PEs, left lower lobe infarct, small pleural effusion, no significant lymphadenopathy, areas of tree- in-bud. In the right upper lobe. Could be related to industrial exposure
[2018-05-11 23:43] LABS: Partial Thromboplastin Ratio 3.5
[2018-05-11 23:46] LABS: Partial Thromboplastin Time 95.1 Seconds (21.0-31.0)
[2018-05-12] MEDS: OXYCODONE HCL IR 5 MG TAB (IMMEDIATE RELEASE) PO PRN ×2 (00:27→07:48)
[2018-05-12] MEDS: HEPARIN STANDARD DEXTROSE 25,000 UNITS/500 ML IV SCH (05:08)
[2018-05-12 07:00] LABS: Basophils # (auto) 0.01 K/uL (0-0.2); Basophils % (auto) 0.2 %; Eosinophils % (auto) 1.7 %; Hematocrit (blood only) 41.4 % (42-52); Hemoglobin 14.1 g/dL (14.0-18.0); Immature Granulocytes # (auto) 0.01 K/uL (0.00-0.02); Immature Granulocytes % (auto) 0.2 %; Lymphocytes # (auto) 0.92 K/uL (1.2-3.4); Lymphocytes % (auto) 15.2 %; Mean Corpuscular Hgb Conc 34.1 g/dL (32-36); Mean Corpuscular Volume 86.8 fL (80-100); Mean Platelet Volume 9.7 fL (7.4-10.4); Monocytes # (auto) 0.53 K/uL (0.11-0.59); Monocytes % (auto) 8.7 %; Neutrophils # (auto) 4.49 K/uL (1.4-6.5); Platelet Count 203 K/uL (130-400); RDW Coefficient of Variation 12.7 % (11.5-14.5); RDW Standard Deviation 40.6 fL (36.4-46.3); Red Blood Count 4.77 M/uL (4.7-6.1); White Blood Count 6.06 K/uL (4.8-10.8)
[2018-05-12 07:24] LABS: Partial Thromboplastin Ratio 2.8
[2018-05-12 07:29] LABS: Partial Thromboplastin Time 74.6 Seconds (21.0-31.0)
[2018-05-12 07:37] LABS: BUN Creatinine Ratio 12.4 (10-20); Blood Urea Nitrogen 8 mg/dl (7-18); Calcium 8.4 mg/dl (8.5-10.1); Carbon Dioxide 27 mmol/L (21-32); Chloride 104 mmol/L (98-107); Creatinine Clr Calc Pharmacy 154.4 ml/min; Est GFR (African American) > 150.0; Est GFR (Non-African American) 130.7; Glucose 100 mg/dl (70-99); Potassium 3.3 mmol/L (3.5-5.1); Sodium 138 mmol/L (136-145)
[2018-05-12] MEDS ORDERED: APIXABAN 5 MG TABLET PO STA (12:18)
--- NOTE | 2018-05-12 17:15 | Discharge Summary ---
Date of Service May 12, 2018 Admission HPI Per Admitting Provider 28 yo male with no significant medical history, presents to the ED today c/o severe chest pain. He noticed the pain yesterday afternoon, occurred while at rest. The pain was worse with exertion or taking a deep breath. The pain continued to get more intense and he felt short of breath. He had a non- productive cough, no hemoptysis, no fever. He came to the ED for evaluation. He has never had chest pain like this. He had a severe URI a month ago, since then he has had a nagging intermittent cough. He does smoke occasionally. In the ED his initial vital signs showed a pulse of 103, RR 20, 95% on room air and systolic BP in the 120's. His CBC and BMP were normal. D dimer was elevated. Normal CXR and EKG. CTA chest showed bilateral PE with predominance in the lower lobes, small left pleural effusion and infarction. Some tree in bud opacities in right upper lobe and hilar adenopathy noted. Venous doppler negative for DVT bilaterally and he denied leg pain. He has no personal history of VTE. He says that his mother's father had blood clots. He admits to traveling by [employer] quite often for work. He flies to [place], [place] often, flights are a few hours. 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 He says that he wears PPD every time but they always tell him that it is not 100% effective. There were discussions by ED staff to use tPA because he had increased chest pain. However, his blood pressure was preserved, 130's systolic, HR in the 90s. Elected to use Heparin drip and admit to tele. Discussed the findings on CT chest with Dr. Osei, he will see the patient in consult. Principal Diagnosis Pulmonary embolisms Discharge Exam Constitutional WD/WN, vitals as above Eyes PERRL, conjunctivae normal, anicteric sclerae ENMT external ear and nose normal, oropharynx normal Neck trachea midline, no thyromegaly Respiratory normal respiratory effort, lungs clear to auscultation Cardiovascular RRR, no murmur, no edema Gastrointestinal (Abdomen) normal bowel sounds, soft, nontender, no hepatosplenomegaly Musculoskeletal no cyanosis or clubbing, extremities motor strength 5/5 Skin no rashes, warm and dry Neurologic patellar DTR's 2+ bilat, sensation intact and PERRL, EOMI, accommodation nl, no face palsy, no dysarthria Psychiatric A+Ox3, euthymic affect Lymphatic no cervical or axillary lymphadenopathy Discharge Data Allergies Allergy/AdvReac Type Severity Reaction Status Date / Time No Known Allergies Allergy Unverified 05/11/18 09:32 Consultations 05/11/18 10:57 ED Decision to Admit Stat 05/11/18 12:15 Consult Pulmonology Routine Ordered Studies 05/11/18 09:33 CT angio chest PE protocol Stat 05/11/18 10:05 US venous doppler [facility] Hospital Course (1) Pulmonary embolism: Bilateral distribution, more predominant in the lower lobes. Pain and shortness of breath improved on heparin gtt. - On 05/12, he was switched to apixaban with consult from pulmonology - Hypercoagulable work up sent by ED doctor - Will follow up with his PCP this week for follow up of the hypercoaguable labs and then with pulmonology in 2-[address] scan to follow up on the lung nodules seen on CTA during this admission. (2) Chest pain: Due to pulmonary infarction, most of the pain is on the left side. Pain was improving by discharge. - Discharged on short course of Percocet. (3) Lung nodules: Punctate nodules seen on CTA chest on 05/11. Also there was tree in bud opacity in right upper lobe. Report mentions mediastinal and hilar adenopathy. - D/w Dr. Osei - Could be work exposure vs. sarcoidosis or other inflammatory disease. - Will need repeat CT scan after PEs have been treated for at least 1 month. Total Time Total Time Spent Total Time Spent (In Minutes): 35 Total Time Includes: Examination of the Patient, Discharge Planning, Medication Reconciliation and Communication With Other Providers Discharge Plan Discharge Items Patient Disposition: Home - Self-Care Reason For Visit: BILATERAL PE, RIGHT UPPER LOBE INFECTION Discharge Diagnosis: Pulmonary embolisms (blood clots in the lungs) Condition: Good Discharge Goals: Improve disease control, Improve function and Increase independence Activity: Resume your previous activity Activity Comment: Except, no flying for 2 weeks. Non-emergency contact: Primary Care Provider and Telephone Order Dispatcher Call non-emergency contact if: you have any medication questions and your symptoms worsen Follow-up/Referrals: Linda Velez CRNP [Nurse Practitioner] - 05/30/18 10:30 am (An apppointment has been made on your behalf with [facility] which is located in [address]. Please arrive at 10:15 for this first appointment so they can update the records. Please bring your insurance card and photo identification. Call the Pulmonology Office with any questions or concerns. Thank you! ) Fernando Feliciano MD [Primary Care Provider] - (Please see Dr. Feliciano in the clinic in 1 week to follow up on the labs that were done while inpatient and to be sure you are feeling better.) Diet: Regular Addtl Provider Instructions: Mr. Torre, You were in the hospital for blood clots in the lungs. This was probably caused by being stationary during your fairly extensive travel for work. We started you on a blood thinner called Eliquis or apixaban (Brand name vs. generic name) while you were in the hospital. You will take 10 mg 2 times per day for 7 days, then drop to 5mg 2 times per day. You will need to take this for at least 3 months, and should only stop in conjunction with your doctors' advice. Take it as close to 12 hours apart as possible because it does not have any continued effect if you miss doses. Try to "walk it back" one hour at a time to get the doses at the most convenient time for you. For example, take tonight's dose around midnight, then 11am tomorrow, then 10pm, etc. until it is at a good morning and night time for you. We sent some blood work that will help us tell if your blood has a tendancy to clot easier than the average person's. These labs get sent out of the hospital, so you will have to follow up with Dr. Feliciano to get the results. Please see him next week to be sure everything is going well. The CT scan of your chest also noted some change in the right lung that might be totally by chance, or could be a result of some of the fumes in your workplaces. Please follow up with the pulmonology doctors in 2-4 weeks to discuss any further testing ( possibly a repeat CT scan). Please come back to the hospital if you feel more shortness of breath, palpitations, lightheaded, dizzy, or have other concerning symptoms. Prescriptions: New oxycodone-acetaminophen [Percocet] 5-325 mg tablet 1 tab PO Q6H PRN (Reason: pain) Qty: 14 RF: 0 apixaban 5 mg (74 tabs) tablets,dose pack 10 mg PO Q12H Qty: 74 RF: 0 Continue sertraline 100 mg tablet 100 mg PO QAM RF: 0 Stand-Alone Forms: [facility] Discharge Orders: Discharge Order (Routine); Ordered 05/12/18 Ordered By: Alex Casey Admission Data Admit Date/Time: 05/11/18 11:07 Attending Provider: Alex Casey Admit Provider: Jarred Riggins Primary Care Provider: Fernando Feliciano Other Providers: Hi Osei ; Alex Casey Service: Telemetry Other Interventions: Discharge Summary Assessment (RN) Last Done: 05/12/18 13:28 DC Date/Time DO NOT enter until pt leaves facility: 05/12/18 13:45
[2018-05-14 20:37] LABS: Anti Cardiolipin Ab IgG <14 GPL (< = 14); Anti Cardiolipin Ab IgM <12 MPL (< = 12); Anti-Thrombin III Activity 109 % activity (80-120); B2 Glycoprotein IgA <9 SAU (<=20); B2 Glycoprotein IgG <9 SGU (<=20); B2 Glycoprotein IgM <9 SMU (<=20); Lupus Anticoagulant Positive (Negative); Protein S Functional(Activity) 22 % (70-150)
== END 2018-05-12 13:45 | disposition home or self-care (01) | DRG 176 ==
LOC: ED 08:44 → 2E 11:07 → SUATTDRO 11:07 → 2E 12:10